=== PATIENT | male | born 1960 | race Caucasian/White ===

== ENCOUNTER 2016-05-24 09:16 | Day surgery (SDC) | payer BC ==
[~2016-05-24 09:16] MED LIST: KETOROLAC TROMETHAMINE 0.45% 4 DROP/0.4 ML DROPERETTE OS PRN; MIDAZOLAM 2 MG/2 ML INJ ONE
[2016-05-24] MEDS ORDERED: EPINEPHRINE INJ/PF 1 MG/1 ML AMPULE ONE (09:30)
[2016-05-24] MEDS ORDERED: LIDOCAINE 1% INJ-PF (10 MG/ML) 30 ML SDV ONE (09:30)
[2016-05-24] MEDS ORDERED: CHONDR SU A NA/HYALUR INTRAOC KIT (SURGICARE) ONE (09:30)
[2016-05-24] MEDS: TETRACAINE HCL 0.5% OPH SOLN 0.6 ML DROPERETTE OS PRN ×3 (09:39→10:14)
[2016-05-24] MEDS: TROPICAMIDE 1% OPH SOLN 3 ML OS PRN ×3 (09:40→10:02)
[2016-05-24] MEDS: CYCLOPENTOLATE 0.2%/PHENYLEPHRINE 1% OPH SOLN 2 ML OS PRN ×3 (09:40→10:02)
[2016-05-24] MEDS: BESIFLOXACIN HCL 0.6% OPH SUSP 5 ML BOTTLE OS PRN ×4 (09:41→10:38)
[2016-05-24] MEDS ORDERED: MIDAZOLAM 2 MG/2 ML INJ ONE (10:06)
[2016-05-24] MEDS ORDERED: FENTANYL CITRATE INJ/PF 100 MCG/2 ML AMPUL ONE (10:06)
[2016-05-24] MEDS ORDERED: TRYPAN BLUE 0.06 % OPH SOLN 0.5 ML DISP.SYRIN ONE (10:20)
[2016-05-24] MEDS: TOBRAMYCIN SULFATE/DEXAMETH OPH OINTMENT 3.5 GM ONE ×2 (10:36→10:38)
== END 2016-05-24 11:11 | disposition home or self-care (01) ==
LOC: SC 09:16
PROVIDERS: ATTEND Ophthalmology
PROC: 08RK3JZ Replacement of Left Lens with Synthetic Substitute, Percutaneous Approach (ICD-10-PCS; principal; 2016-05-24 10:00)
DX: H25.12 Age-related nuclear cataract, left eye (principal); Z88.0 Allergy status to penicillin; Z87.891 Personal history of nicotine dependence
CPT/HCPCS: 66984; V2630; J2250; J3490 ×4; J0171; J3010; 142

== ENCOUNTER 2016-06-07 06:30 | Day surgery (SDC) | payer BC ==
[~2016-06-07 06:30] MED LIST changes: +BUPIVACAINE HCL 0.75% INJ/PF (7.5 MG/1 ML) 10 ML SDV OD PRN; +KETOROLAC TROMETHAMINE 0.45% 4 DROP/0.4 ML DROPERETTE OD PRN; -KETOROLAC TROMETHAMINE 0.45% 4 DROP/0.4 ML DROPERETTE OS PRN; -MIDAZOLAM 2 MG/2 ML INJ ONE
[2016-06-07] MEDS: TROPICAMIDE 1% OPH SOLN 3 ML OD PRN ×3 (06:48→07:14)
[2016-06-07] MEDS: TETRACAINE HCL 0.5% OPH SOLN 0.6 ML DROPERETTE OD PRN ×2 (06:48→07:28)
[2016-06-07] MEDS: BESIFLOXACIN HCL 0.6% OPH SUSP 5 ML BOTTLE OD PRN ×4 (06:49→08:12)
[2016-06-07] MEDS: CYCLOPENTOLATE 0.2%/PHENYLEPHRINE 1% OPH SOLN 2 ML OD PRN ×3 (06:49→07:15)
[2016-06-07] MEDS ORDERED: LIDOCAINE 1% INJ-PF (10 MG/ML) 30 ML SDV ONE (07:14)
[2016-06-07] MEDS ORDERED: EPINEPHRINE INJ/PF 1 MG/1 ML AMPULE ONE (07:14)
[2016-06-07] MEDS ORDERED: CHONDR SU A NA/HYALUR INTRAOC KIT (SURGICARE) ONE (07:14)
[2016-06-07] MEDS ORDERED: MIDAZOLAM 2 MG/2 ML INJ ONE (07:31)
[2016-06-07] MEDS ORDERED: FENTANYL CITRATE INJ/PF 100 MCG/2 ML AMPUL ONE (07:31)
[2016-06-07] MEDS: TOBRAMYCIN SULFATE/DEXAMETH OPH OINTMENT 3.5 GM ONE ×2 (08:12)
== END 2016-06-07 08:51 | disposition home or self-care (01) ==
LOC: SC 06:30
PROVIDERS: ATTEND Ophthalmology
PROC: 08RJ3JZ Replacement of Right Lens with Synthetic Substitute, Percutaneous Approach (ICD-10-PCS; principal; 2016-06-07 07:45)
DX: H25.11 Age-related nuclear cataract, right eye (principal); Z96.1 Presence of intraocular lens; Z87.891 Personal history of nicotine dependence; Z88.0 Allergy status to penicillin
CPT/HCPCS: 66984; V2630; J2250; J3490 ×3; J0171; J3010; 142

== ENCOUNTER 2016-07-15 12:59 | Emergency (ER) | payer BC ==
--- NOTE | 2016-07-15 13:39 | ER Document Report ---
ED Medical Screen (RME) - General Chief Complaint: Shortness Of Breath Stated Complaint: SHORTNES OF BREATH Time Seen by Provider: 07/15/16 13:25 Mode of Arrival: Ambulatory Information source: Patient Notes: This is a 55-year-old male who was sent from urgent care and sounds [facility] to rule out PE. Patient had eye surgery 2-1/2 weeks ago and has been sedentary since. He has had intermittent shortness of breath for the past week but today at 5 AM he had sudden worsening of his shortness of breath that prompted his presentation to urgent care. At urgent care he had a documented room air sat of 89% and was noted to be tachycardic. He denies any previous history of the symptoms. No fevers or chills. No cough or congestion. He denies any chest pain. I have greeted and performed a rapid initial assessment of this patient. A comprehensive ED assessment and evaluation of the patient, analysis of test results and completion of the medical decision making process will be conducted by additional ED providers. TRAVEL OUTSIDE OF THE [place] IN LAST 30 DAYS: No - Related Data Allergies/Adverse Reactions: amoxicillin Allergy (Verified 07/15/16 13:02) HIVES, FACE SWELLING FACIAL PEELING Past Medical History - Past Medical History Cardiac Medical History: Denies: Hx Heart Attack, Hx Hypertension Pulmonary Medical History: Denies: Hx Asthma Neurological Medical History: Denies: Hx Cerebrovascular Accident, Hx Seizures Renal/ Medical History: Denies: Hx Peritoneal Dialysis GI Medical History: Denies: Hx Hepatitis, Hx Hiatal Hernia, Hx Ulcer Infectious Medical History: Denies: Hx Hepatitis Past Surgical History: Denies: Hx Open Heart Surgery, Hx Pacemaker Physical Exam - Vital signs Vitals: Temp Pulse Resp BP Pulse Ox 97.6 F 116 H 24 H 124/89 H 92 07/15/16 13:02 07/15/16 13:02 07/15/16 13:02 07/15/16 13:02 07/15/16 13:02 - General General appearance: Appears well, Alert Notes: Pleasant and conversant with no conversational dyspnea - Respiratory Respiratory status: No respiratory distress Breath sounds: Normal. No: Rales, Rhonchi, Wheezing Course - Vital Signs Vital signs: Temp Pulse Resp BP Pulse Ox 97.6 F 116 H 24 H 124/89 H 92 07/15/16 13:02 07/15/16 13:02 07/15/16 13:02 07/15/16 13:02 07/15/16 13:02
[2016-07-15 14:24] LABS: ABSOLUTE EOSINOPHILS # (AUTO) 0.1 10^3/uL (0.0-0.6); ABSOLUTE LYMPHOCYTES (AUTO) 2.1 10^3/uL (0.5-4.7); ABSOLUTE MONOCYTES (AUTO) 1.3 10^3/uL (0.1-1.4); ABSOLUTE NEUT (AUTO) 10.6 10^3/uL (1.7-8.2); BASOPHILS % (AUTO) 0.3 % (0-2); EOSINOPHILS % (AUTO) 0.6 % (0-6); HEMATOCRIT 48.7 % (37.9-51.0); HEMOGLOBIN 17.3 g/dL (13.5-17.0); HGB HCT DIFFERENCE 3.2; LYMPHOCYTES % (AUTO) 14.6 % (13-45); MEAN CORPUSCULAR HEMOGLOBIN 32.9 pg (27.0-33.4); MEAN CORPUSCULAR HGB CONC 35.4 g/dL (32.0-36.0); MEAN CORPUSCULAR VOLUME 93 fl (80-97); MONOCYTES % (AUTO) 9.5 % (3-13); RED BLOOD COUNT 5.25 10^6/uL (4.35-5.55); RED CELL DISTRIBUTION WIDTH 13.4 % (11.5-14.0); WHITE BLOOD COUNT 14.1 10^3/uL (4.0-10.5)
[2016-07-15 14:38] LABS: PROTHROMBIN TIME 13.6 SEC (11.4-15.4)
[2016-07-15 14:39] LABS: PARTIAL THROMBOPLASTIN TIME 35.7 SEC (23.5-35.8)
[2016-07-15 15:22] LABS: ALANINE AMINOTRANSFERASE 69 U/L (21-72); ALBUMIN 4.3 g/dL (3.5-5.0); ALKALINE PHOSPHATASE 74 U/L (38-126); ANION GAP 13 (5-19); ASPARTATE AMINO TRANSFERASE 45 U/L (17-59); BILIRUBIN,DIRECT 0.2 mg/dL (0.0-0.4); BLOOD UREA NITROGEN 10 mg/dL (7-20); CALCIUM 9.8 mg/dL (8.4-10.2); CARBON DIOXIDE 25 mmol/L (22-30); CHLORIDE 104 mmol/L (98-107); GLUCOSE 110 mg/dL (75-110); POTASSIUM 4.6 mmol/L (3.6-5.0); SODIUM 142.3 mmol/L (137-145); TOTAL PROTEIN 7.5 g/dL (6.3-8.2)
--- NOTE | 2016-07-15 15:59 | RADIOLOGY REPORT (SQ) ---
EXAM DESCRIPTION: CTA CHEST COMPLETED DATE/TIME: 07/15/2016 3:47 pm REASON FOR STUDY: hypoxia, recent surgery/sedentary, r/o PE COMPARISON: None. TECHNIQUE: CT scan of the chest performed using helical scanning technique with dynamic intravenous contrast injection. Images reviewed with lung, soft tissue and bone windows. Reconstructed coronal and sagittal MPR images reviewed. Additional 3 dimensional post-processing performed to develop Maximal Intensity Projection images (CT P). All images stored on PACS. All CT scanners at this facility use dose modulation, iterative reconstruction, and/or weight based d osing when appropriate to reduce radiation dose to as low as reasonably achievable (ALARA). [facility]: Dose Right [facility]: CareDose [facility]: Dose Right [facility]: Teradose 4D [facility]: [employer] CONTRAST TYPE AND DOSE: 78 Isovue 370- low osmolar. RENAL FUNCTION: GFR > 60. RADIATION DOSE: 49.43 mGy. LIMITATIONS: None. FINDINGS: LUNGS AND PLEURA: No masses, infiltrates, pneumothorax. No pleural effusions. Calcified granuloma right upper lobe. AORTA AND GREAT VESSELS: No aneurysm or dissection. HEART: Enlargement of the right ventricle with slight bowing of the intraventricular septum suggestiv e of right heart strain. No pericardial effusion. PULMONARY ARTERIES: Subtle pulmonary embolus at the bifurcation of the right and left main pulmonary artery extending into bilateral upper and lower lobe branches. HILAR AND MEDIASTINAL STRUCTURES: Partially calcified lymph nodes compatible with prior granulomatous disease. No identified masses or abnormal nodes. HARDWARE: None in the chest. UPPER ABDOMEN: Splenic calcifications compatible with prior granulomatous disease. No significant fi ndings. Limited exam. THYROID AND OTHER SOFT TISSUES: No masses. No adenopathy. BONES: No acute or significant finding. 3D MIPS: Confirm above findings. OTHER: No other significant finding. IMPRESSION: HIGH CLOT BURDEN PULMONARY EMBOLI INCLUDING SADDLE PULMONARY EMBOLUS WITH CT FINDINGS MATSON GGESTING RIGHT HEART STRAIN DETAILED ABOVE. COMMENT: Pertinent findings on the imaging study reported as a CRITICAL RESULT to DR. DAVILA at15: 53 on 07/15/2016. Category of Critical Result: ACUTE PULMONARY EMBOLI. TECHNICAL DOCUMENTATION: JOB ID: [id number] Quality ID # [id number]: Final reports with documentation of one or more dose reduction techniques (e.g., Au tomated exposure control, adjustment of the mA and/or kV according to patient size, use of iterative reconstruction technique) 2010 [employer]- All Rights Reserved
--- NOTE | 2016-07-15 16:28 | ER Document Report ---
ED Respiratory Problem - General Chief Complaint: Shortness Of Breath Stated Complaint: SHORTNES OF BREATH Time Seen by Provider: 07/15/16 13:25 Mode of Arrival: Ambulatory Notes: Patient is being evaluated for shortness of breath and increased heart rate and hypoxia. Patient was seen this morning in a local clinic and referred here for further workup and evaluation. Patient recently underwent bilateral cataract surgery, one in May and one in June. Following the second surgery, he had a retinal tear and had surgery to repair that condition, but the surgery failed. He underwent a second surgery about 2-1/2 weeks ago. During his recovery period , the patient has been subject to 22 hours out of every day laying in a special chair with his face and down and immobile. During the past week and a half, patient has experienced intermittent episodes of shortness of breath, at first associated with an increased heart rate, but since the beginning, patient has not noted frequent heart rate increases. He felt fine yesterday, and then at 5 AM this morning he awakened suddenly with his heart racing and difficulty breathing while both of which lasted about 10 minutes. He then went to the local urgent care this morning and they observed him to have a sinus tachycardia with an oxygen level of just 89%. His EKG showed a sinus tachycardia. 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 TRAVEL OUTSIDE OF THE [place] IN LAST 30 DAYS: No - Related Data Allergies/Adverse Reactions: amoxicillin Allergy (Verified 07/15/16 13:02) HIVES, FACE SWELLING FACIAL PEELING Past Medical History - General Information source: Patient - Social History Smoking Status: Former Smoker - Stopped smoking 2 years ago. Cigarette use (# per day): No Family History: Reviewed & Not Pertinent Patient has suicidal ideation: No Patient has homicidal ideation: No - Past Medical History Cardiac Medical History: Denies: Hx Heart Attack, Hx Hypertension Pulmonary Medical History: Denies: Hx Asthma Neurological Medical History: Denies: Hx Cerebrovascular Accident, Hx Seizures GI Medical History: Denies: Hx Hepatitis, Hx Hiatal Hernia, Hx Ulcer Infectious Medical History: Denies: Hx Hepatitis Review of Systems - Review of Systems Notes: REVIEW OF SYSTEMS: CONSTITUTIONAL : Denies fever. EENT: Denies eye, ear, nose or mouth or throat pain or other symptoms. CARDIOVASCULAR: Denies chest pain. Has had frequent episodes of "racing heart ". Long standing varicosities of the left lower leg. RESPIRATORY: Denies cough, chest congestion, but has shortness of breath. See HPI. GASTROINTESTINAL: Denies abdominal pain or nausea, vomiting, or diarrhea. GENITOURINARY: Denies difficulty or painful urinating, urinary frequency, blood in urine. MUSCULOSKELETAL: Denies back or neck pain. Denies joint pain or swelling. SKIN: Denies rash or skin lesions. NEUROLOGICAL: Denies LOC or altered mental status. Denies headache. Denies sensory loss or motor deficits. ALL OTHER SYSTEMS REVIEWED AND NEGATIVE. Physical Exam - Vital signs Vitals: Temp Pulse Resp BP Pulse Ox 97.6 F 116 H 24 H 124/89 H 92 07/15/16 13:02 07/15/16 13:02 07/15/16 13:02 07/15/16 13:02 07/15/16 13:02 Interpretation: Tachycardic, Hypoxic, Tachypneic - Notes Notes: PHYSICAL EXAMINATION: GENERAL: Well-appearing, in no acute distress. Appears well and comfortable while sitting on the bed and not active. O2 sat 96% on room air. HEAD: Atraumatic, normocephalic. ENT: oropharynx clear without exudates. Moist mucous membranes. NECK: Normal range of motion, supple. LUNGS: Breath sounds clear and equal bilaterally. HEART: Regular rate and rhythm without murmur. Heart rate 110/min. ABDOMEN: Soft, nontender. No guarding or rebound. BACK: No tenderness throughout entire back. EXTREMITIES: Normal range of motion without pain. Varicose veins of the left lower leg. Mild tenderness in the popliteal fossa of the left. Negative pain in the lower legs to compression. NEUROLOGICAL: Normal speech, normal gait. Normal sensory, motor, and reflex exams. Awake, alert, and oriented x3. Cranial nerves normal. PSYCH: Normal mood, normal affect. SKIN: Warm, dry, no rashes. Course - Re-evaluation Re-evalutation: 07/15/16 16:43 Venous Doppler showed a large clot in both popliteal fossae. CTA shows extensive clot in both the right and left lungs including a saddle embolus. Some evidence of right heart strain present on the CTA. I spoke with this patient's delivery lead, Dr. Latham in [place], and he said there were no limitations on how to anticoagulate this patient from an ophthalmologic point of view. I then was able to reach the hospitalist electronic transaction implementer at [facility], Dr. Reid, who accepted the patient in transfer. We discussed the use of heparin versus Lovenox and concluded that we would treat the patient here with 1 mg of Lovenox per kilogram, or approximately 100 mg subcu.. 07/15/16 16:46 Patient's vital signs remained stable. On room air, his oxygen level is 96% when he is not active. - Vital Signs Vital signs: Temp Pulse Resp BP Pulse Ox 97.6 F 116 H 17 102/76 95 07/15/16 13:02 07/15/16 13:02 07/15/16 15:01 07/15/16 15:01 07/15/16 15:01 - Laboratory Result Diagrams: 07/15/16 14:14 07/15/16 14:56 Laboratory results interpreted by me: 07/15/16 14:14 WBC 14.1 H Hgb 17.3 H Absolute Neutrophils 10.6 H - Diagnostic Test Radiology reviewed: Image reviewed, Reports reviewed - CTA of the chest shows bilateral pulmonary emboli with saddle embolus present. Venous Doppler of the legs shows bilateral popliteal deep venous thrombosis Critical Care Note - Critical Care Note Total time excluding time spent on procedures (mins): 45 Discharge - Discharge Clinical Impression: Deep venous thrombosis of popliteal vein Qualifiers: Chronicity: acute Laterality: bilateral Qualified Code(s): I82.433 - Acute embolism and thrombosis of popliteal vein, bilateral Pulmonary emboli Qualifiers: Pulmonary embolism type: saddle Chronicity: acute Acute cor pulmonale presence : without acute cor pulmonale Qualified Code(s): I26.92 - Saddle embolus of pulmonary artery without acute cor pulmonale Admitting Provider: Hospitalist
[2016-07-15] MEDS ORDERED: ENOXAPARIN SODIUM INJ 100 MG/1 ML DISP.SYRIN SUBCUT SCH (16:45)
[2016-07-15] MEDS ORDERED: NORMAL SALINE 1000 ML 1,000 ML IV ONE (16:54)
--- NOTE | 2016-07-15 18:15 | RADIOLOGY REPORT (SQ) ---
EXAM DESCRIPTION: VENOUS UNILATERAL LOWER COMPLETED DATE/TIME: 07/15/2016 5:48 pm REASON FOR STUDY: LLE r/o DVT COMPARISON: None. TECHNIQUE: Dynamic and static ortega scale and color images acquired of both lower extremity venous sy stems. Selected spectral images acquired with additional compression and augmentation maneuvers. Imag es stored on PACS. LIMITATIONS: None. FINDINGS: RIGHT LEG COMMON FEMORAL AND FEMORAL: Normal phasicity, compression and augmentation. No visualized echogenic m aterial on ortega scale. No defects on color images. POPLITEAL: Thrombosed. No compression or augmentation possible. Thrombus extends from the mid to th e distal popliteal vein. CALF VESSELS: Partially thrombosed, demonstrating some pulsatile flow. GSV AND SSV: Normal compression. No visualized echogenic material on ortega scale. No defects on color images. ANY DEEP VENOUS INSUFFICIENCY: Greater saphenous reflux is documented. ANY EVIDENCE OF POPLITEAL CYST: No. OTHER: No other significant finding. LEFT LEG COMMON FEMORAL AND FEMORAL: Normal phasicity, compression and augmentation. No visualized echogenic m aterial on ortega scale. No defects on color images. POPLITEAL: Thrombosed. No compression or augmentation possible. Thrombus extends from the proximal to the distal popliteal vein. CALF VESSELS: Normal compression and augmentation. No visualized echogenic material on ortega scale. No defects on color images. GSV AND SSV: Normal compression. No visualized echogenic material on ortega scale. No defects on color images. ANY DEEP VENOUS INSUFFICIENCY: Proximal femoral vein reflux is documented. ANY EVIDENCE POPLITEAL CYST: No. OTHER: Left medial calf thrombosed superficial varicose vein. IMPRESSION: Bilateral popliteal thrombosis and right posterior tibial thrombosis. The sonography te documented indication of these findings to the treating physician at 1730 hours. TECHNICAL DOCUMENTATION: JOB ID: [id number] [employer]- All Rights Reserved
[2016-07-15 19:49] VITALS: BP 124/88
[2016-07-16] MEDS ORDERED: ENOXAPARIN SODIUM INJ 100 MG/1 ML DISP.SYRIN SUBCUT SCH (06:00)
--- NOTE | 2016-07-17 09:32 | EKG REPORT ---
SEVERITY:- ABNORMAL ECG - SINUS TACHYCARDIA LEFT ANTERIOR FASCICULAR BLOCK : Confirmed by: [place] 17-Jul-2016 09:31:51
== END 2016-07-15 19:55 | disposition short-term general hospital (02) ==
LOC: ER 12:59
DX: I26.92 Saddle embolus of pulmonary artery without acute cor pulmonale (principal); I82.433 Acute embolism and thrombosis of popliteal vein, bilateral; R06.02 Shortness of breath; R09.02 Hypoxemia; Z98.890 Other specified postprocedural states; I83.92 Asymptomatic varicose veins of left lower extremity; Z88.0 Allergy status to penicillin; Z87.891 Personal history of nicotine dependence
CPT/HCPCS: 93005; 99291; 96372; 96360; 96361; 36415; 85025; 85610; 85730; 80053; 93971; 71275; 93010; J7030; J1650